=== PATIENT | male | born 1985 | race Two or more races ===

== ENCOUNTER 2021-07-02 14:26 | Emergency (ER) | payer MEDICAID, OTHER ==
[~2021-07-02] VITALS: Ht 175.3 cm; Wt 90.7 kg
[2021-07-02 21:00] VITALS: BP 144/97
[2021-07-02] MEDS ORDERED: ALPRAZolam 0.5 MG TAB PO ONE (21:00)
== END 2021-07-03 05:22 | disposition home or self-care (01) ==
LOC: EDBD 14:26 → ER 14:26
DX: F41.0 Panic disorder [episodic paroxysmal anxiety] (principal); F20.0 Paranoid schizophrenia; F43.0 Acute stress reaction; F17.210 Nicotine dependence, cigarettes, uncomplicated; F32.9 Major depressive disorder, single episode, unspecified; F12.10 Cannabis abuse, uncomplicated

== ENCOUNTER 2021-09-23 18:03 | Emergency (ER) | payer OTHER, MEDICAID ==
[~2021-09-23] VITALS: Ht 180.3 cm; Wt 81.6 kg
[2021-09-24 01:50] VITALS: BP 145/82
== END 2021-09-24 01:54 | disposition home or self-care (01) ==
LOC: ER 18:04
DX: F43.0 Acute stress reaction (principal); F17.210 Nicotine dependence, cigarettes, uncomplicated

== ENCOUNTER 2021-10-20 13:36 | Emergency (ER) | payer OTHER, MEDICAID ==
[~2021-10-20] VITALS: Ht 177.8 cm; Wt 90.7 kg
[2021-10-20] MEDS ORDERED: DOCUSATE SOD 100 MG CAP PO ONE (13:45)
[2021-10-20 15:45] VITALS: BP 122/71
== END 2021-10-20 15:48 | disposition home or self-care (01) ==
LOC: ER 13:36
DX: K59.00 Constipation, unspecified (principal); F41.9 Anxiety disorder, unspecified; F17.210 Nicotine dependence, cigarettes, uncomplicated; F12.10 Cannabis abuse, uncomplicated; Z91.041 Radiographic dye allergy status
CPT/HCPCS: 74018

== ENCOUNTER 2021-11-22 17:42 | Emergency (ER) | payer OTHER, MEDICAID ==
[~2021-11-22] VITALS: Ht 175.3 cm; Wt 77.1 kg
[2021-11-22 22:46] LABS: Albumin 3.8 g/dL (3.4-5.0); Calcium 9.1 mg/dL (8.5-10.1); Potassium 3.7 mmol/L (3.5-5.1)
[2021-11-22 22:49] LABS: BUN/Creatinine Ratio 11.5; Bilirubin, Total 0.4 mg/dL (0.2-1.0); Total Protein 6.5 g/dL (6.4-8.2)
[2021-11-22 23:03] VITALS: BP 111/62
[2021-11-22 23:06] LABS: Basophils # (auto) 0.1 10 ^3/uL (0-0.2); Basophils % (auto) 1.2 % (0.0-2.0); Eosinophils # (auto) 0.1 10 ^3/uL (0-0.8); Eosinophils % (auto) 1.9 % (0.0-7.0); Hematocrit 38.5 % (41.0-53.0); Lymphocytes # (auto) 2.5 10 ^3/uL (0.4-5.4); Lymphocytes % (auto) 39.6 % (10.0-50.0); Mean Corpuscular Hemoglobin 31.8 pg (28.0-32.0); Mean Corpuscular Hgb Conc. 36.3 g/dL (32.0-36.0); Mean Corpuscular Volume 87.7 fL (80.0-100.0); Monocytes # (auto) 0.4 10 ^3/uL (0-1.3); Neutrophils # (auto) 3.3 10 ^3/uL (1.6-8.6); Neutrophils % (auto) 51.3 % (37.0-80.0); Nucleated Red Blood Cells % 0.1 %; Red Blood Cells 4.39 10^6/uL (4.5-5.90); Red Cell Distribution Width 12.9 % (11.8-14.3); White Blood Cell 6.4 10^3/uL (4.4-10.8)
[2021-11-22 23:28] LABS: Urine WBC None Seen /hpf (0 - 3)
[2021-11-22 23:39] LABS: Urine Bacteria NONE SEEN /hpf (None Seen); Urine Blood Negative /uL (Negative); Urine Specific Gravity 1.005 (1.001-1.035)
[2021-11-23] MEDS ORDERED: CIPROFLOXACIN HCL 500 MG TAB PO ONE (00:45)
[2021-11-23] MEDS ORDERED: metroNIDAZOLE 500 MG TAB PO ONE (00:45)
[2021-11-23] MEDS ORDERED: CIPR-173 PO (00:47)
[2021-11-23] MEDS ORDERED: METR500T PO (00:47)
== END 2021-11-23 01:05 | disposition home or self-care (01) ==
LOC: ER 17:42
DX: K52.9 Noninfective gastroenteritis and colitis, unspecified (principal); F41.9 Anxiety disorder, unspecified; F32.9 Major depressive disorder, single episode, unspecified; F17.210 Nicotine dependence, cigarettes, uncomplicated; F12.10 Cannabis abuse, uncomplicated
CPT/HCPCS: 36415; 71045; 74176; 80053; 81001; 83690; 85025

== ENCOUNTER 2022-02-25 16:13 | Emergency (ER) | payer OTHER, MEDICAID ==
[~2022-02-25] VITALS: Ht 182.9 cm; Wt 90.7 kg
[~2022-02-25 16:13] MED LIST: CIPR-173 PO; METR500T PO
[2022-02-25] MEDS ORDERED: MECLIZINE HCL 25 MG TAB PO ONE (17:00)
[2022-02-25 18:03] VITALS: BP 134/74
== END 2022-02-25 18:05 | disposition home or self-care (01) ==
LOC: EDSEX 16:13 → EDBD 16:13 → ER 16:13
DX: R42 Dizziness and giddiness (principal); F20.9 Schizophrenia, unspecified; F17.210 Nicotine dependence, cigarettes, uncomplicated; Z79.2 Long term (current) use of antibiotics; Z79.899 Other long term (current) drug therapy; Z88.8 Allergy status to other drugs, medicaments and biological substances
CPT/HCPCS: 93005; 99283; J8597

== ENCOUNTER 2022-09-10 12:31 | Emergency (ER) | payer OTHER, MEDICAID ==
[~2022-09-10] VITALS: Ht 175.3 cm; Wt 89.1 kg
[2022-09-10 14:31] VITALS: BP 133/67
[2022-09-10] MEDS ORDERED: IBUPROFEN 600 MG TAB PO ONE (15:00)
[2022-09-10] MEDS ORDERED: IBUP600T28 PO (15:02)
== END 2022-09-10 15:14 | disposition home or self-care (01) ==
LOC: ER 12:31
DX: S20.211A Contusion of right front wall of thorax, initial encounter (principal); F41.9 Anxiety disorder, unspecified; F32.9 Major depressive disorder, single episode, unspecified; F20.9 Schizophrenia, unspecified; F17.210 Nicotine dependence, cigarettes, uncomplicated; F12.90 Cannabis use, unspecified, uncomplicated; F15.90 Other stimulant use, unspecified, uncomplicated; Z91.040 Latex allergy status; X58.XXXA Exposure to other specified factors, initial encounter; Y93.72 Activity, wrestling; Y92.098 Other place in other non-institutional residence as the place of occurrence of the external cause; Y99.8 Other external cause status
CPT/HCPCS: 71101

== ENCOUNTER 2023-01-12 18:23 | Emergency (ER) | payer OTHER, MEDICAID ==
[~2023-01-12] VITALS: Ht 175.3 cm; Wt 93.2 kg
[~2023-01-12 18:23] MED LIST changes: +IBUP1TAB5 PO
[2023-01-12 19:22] LABS: Basophils # (auto) 0.1 10 ^3/uL (0-0.2); Eosinophils # (auto) 0.1 10 ^3/uL (0-0.8); Eosinophils % (auto) 0.9 % (0.0-7.0); Hematocrit 41.8 % (41.0-53.0); Hemoglobin 15.2 g/dL (13.5-17.5); Lymphocytes # (auto) 2.3 10 ^3/uL (0.4-5.4); Lymphocytes % (auto) 31.8 % (10.0-50.0); Mean Corpuscular Hemoglobin 31.9 pg (28.0-32.0); Mean Corpuscular Hgb Conc. 36.3 g/dL (32.0-36.0); Mean Corpuscular Volume 87.7 fL (80.0-100.0); Monocytes # (auto) 0.5 10 ^3/uL (0-1.3); Monocytes % (auto) 7.1 % (0.0-12.0); Neutrophils # (auto) 4.3 10 ^3/uL (1.6-8.6); Neutrophils % (auto) 59.2 % (37.0-80.0); Nucleated Red Blood Cells % 0.1 %; Red Blood Cells 4.77 10^6/uL (4.5-5.90); Red Cell Distribution Width 12.4 % (11.8-14.3); White Blood Cell 7.2 10^3/uL (4.4-10.8)
[2023-01-12 19:23] LABS: Urine Bacteria NONE SEEN /hpf (None Seen); Urine Blood Negative /uL (Negative); Urine Specific Gravity 1.001 (1.001-1.035); Urine WBC <1 /hpf (0 - 3)
[2023-01-12 19:33] LABS: Albumin 4.2 g/dL (3.4-5.0); Calcium 9.1 mg/dL (8.5-10.1); Potassium 3.9 mmol/L (3.5-5.1)
[2023-01-12 19:37] LABS: BUN/Creatinine Ratio 17.7 (10.0-20.0); Bilirubin, Total 0.6 mg/dL (0.2-1.0); Total Protein 6.6 g/dL (6.4-8.2)
[2023-01-12 21:14] VITALS: BP 118/87
== END 2023-01-13 00:49 | disposition left against medical advice (07) ==
LOC: ER 18:23
DX: R11.0 Nausea (principal); R53.83 Other fatigue; R10.9 Unspecified abdominal pain; Z53.21 Procedure and treatment not carried out due to patient leaving prior to being seen by health care provider
CPT/HCPCS: 36415; 80053; 81001; 85025

== ENCOUNTER 2023-02-27 09:57 | Emergency (ER) | payer OTHER, MEDICAID ==
[~2023-02-27] VITALS: Ht 175.3 cm; Wt 94.2 kg
[2023-02-27 10:43] VITALS: BP 144/66
[2023-02-27] MEDS ORDERED: CETI5TAB6 PO (11:51)
== END 2023-02-27 11:57 | disposition home or self-care (01) ==
LOC: ER 09:57
DX: R09.81 Nasal congestion (principal); F17.210 Nicotine dependence, cigarettes, uncomplicated; F12.10 Cannabis abuse, uncomplicated; F14.10 Cocaine abuse, uncomplicated; F11.10 Opioid abuse, uncomplicated; Z91.041 Radiographic dye allergy status

== ENCOUNTER 2023-04-28 17:43 | Emergency (ER) | payer OTHER, MEDICAID ==
[~2023-04-28] VITALS: Ht 175.3 cm; Wt 93.5 kg
[~2023-04-28 17:43] MED LIST changes: +CETI5TAB6 PO
[2023-04-28 19:15] VITALS: BP 114/89; PULSE 92; RESP 19; TEMP 98.6; O2SAT 95
== END 2023-04-28 19:17 | disposition home or self-care (01) ==
LOC: ER 17:43
DX: F43.9 Reaction to severe stress, unspecified (principal); F17.210 Nicotine dependence, cigarettes, uncomplicated; Z79.1 Long term (current) use of non-steroidal anti-inflammatories (NSAID); Z79.2 Long term (current) use of antibiotics; Z79.899 Other long term (current) drug therapy; Z88.8 Allergy status to other drugs, medicaments and biological substances

== ENCOUNTER 2023-05-08 10:11 | Emergency (ER) | payer OTHER, MEDICAID ==
[~2023-05-08] VITALS: Ht 175.3 cm; Wt 95.1 kg
[2023-05-08] MEDS ORDERED: MUPI2OIN2 EX (13:58)
[2023-05-08] MEDS ORDERED: CEPH500C PO (13:58)
[2023-05-08 14:11] VITALS: BP 109/78; PULSE 86; RESP 18; TEMP 98.6; O2SAT 96
== END 2023-05-08 14:15 | disposition home or self-care (01) ==
LOC: ER 10:11
DX: L02.414 Cutaneous abscess of left upper limb (principal); F17.210 Nicotine dependence, cigarettes, uncomplicated; Z79.1 Long term (current) use of non-steroidal anti-inflammatories (NSAID); Z79.2 Long term (current) use of antibiotics; Z79.899 Other long term (current) drug therapy; Z88.8 Allergy status to other drugs, medicaments and biological substances

== ENCOUNTER 2023-05-18 13:21 | Emergency (ER) | payer OTHER, MEDICAID ==
[~2023-05-18] VITALS: Ht 175.3 cm; Wt 93.6 kg
[~2023-05-18 13:21] MED LIST changes: +CEPH500C PO; +MUPI2OIN2 EX
[2023-05-18] MEDS ORDERED: OXYMETAZOLINE HCL 0.05 % NASAL SPRAY 15ML EACHNOSTRI ONE (14:30)
[2023-05-18] MEDS ORDERED: DexAMETHasone SOD PHOS 10MG/1ML VIAL INJ IM ONE (14:30)
[2023-05-18] MEDS ORDERED: LORATADINE 10 MG TAB PO ONE (14:30)
[2023-05-18 15:59] LABS: COVID19 ANTIGEN SOFIA FIA NEGATIVE (NEGATIVE)
[2023-05-18 16:48] LABS: Rapid Influenza A Negative (Negative); Rapid Influenza B Negative (Negative)
[2023-05-18] MEDS ORDERED: IBUP-1455 PO (17:05)
[2023-05-18] MEDS ORDERED: LORA10CA PO (17:05)
[2023-05-18] MEDS ORDERED: AUG875T PO (17:05)
[2023-05-18 17:38] VITALS: BP 117/87; PULSE 71; RESP 18; TEMP 98; O2SAT 95
== END 2023-05-18 17:40 | disposition home or self-care (01) ==
LOC: ER 13:21
DX: J32.9 Chronic sinusitis, unspecified (principal); F17.210 Nicotine dependence, cigarettes, uncomplicated; Z79.1 Long term (current) use of non-steroidal anti-inflammatories (NSAID); Z79.2 Long term (current) use of antibiotics; Z79.899 Other long term (current) drug therapy; Z88.8 Allergy status to other drugs, medicaments and biological substances; Z20.822 Contact with and (suspected) exposure to COVID-19
CPT/HCPCS: 36415; 87426; 87804; 96372; 99283; J1100

== ENCOUNTER 2023-06-08 14:20 | Emergency (ER) | payer OTHER, MEDICAID ==
[~2023-06-08] VITALS: Ht 175.3 cm; Wt 92.8 kg
[~2023-06-08 14:20] MED LIST changes: +AUG875T PO; +IBUP-1455 PO; +LORA10CA PO
[2023-06-08 15:03] LABS: Basophils # (auto) 0.1 10 ^3/uL (0-0.2); Basophils % (auto) 0.8 % (0.0-2.0); Eosinophils # (auto) 0.2 10 ^3/uL (0-0.8); Eosinophils % (auto) 2.4 % (0.0-7.0); Hematocrit 45.2 % (41.0-53.0); Hemoglobin 15.9 g/dL (13.5-17.5); Lymphocytes % (auto) 23.2 % (10.0-50.0); Mean Corpuscular Hemoglobin 31.7 pg (28.0-32.0); Mean Corpuscular Hgb Conc. 35.1 g/dL (32.0-36.0); Mean Corpuscular Volume 90.3 fL (80.0-100.0); Monocytes # (auto) 0.5 10 ^3/uL (0-1.3); Monocytes % (auto) 5.9 % (0.0-12.0); Neutrophils # (auto) 5.7 10 ^3/uL (1.6-8.6); Neutrophils % (auto) 67.7 % (37.0-80.0); Red Cell Distribution Width 13.3 % (11.8-14.3); White Blood Cell 8.4 10^3/uL (4.4-10.8)
[2023-06-08] MEDS ORDERED: ZOFR4T PO (15:29)
[2023-06-08] MEDS ORDERED: MECL1TAB42 PO (15:29)
[2023-06-08 15:31] LABS: Alanine Aminotransferase 35 U/L (7-40); Alkaline Phosphatase 83 U/L (46-116); Anion Gap 9 (5-15); Aspartate Aminotransferase 18 U/L (13-40); BUN/Creatinine Ratio 5.5 (10.0-20.0); Bilirubin, Total 0.8 mg/dL (0.2-1.0); Blood Urea Nitrogen 6 mg/dL (9-23); Calcium 9.9 mg/dL (8.5-10.1); Carbon Dioxide 25 mmol/L (20-30); Chloride 103 mmol/L (98-107); Glucose 99 mg/dL (74-106); Potassium 4.2 mmol/L (3.5-5.1); Sodium 137 mmol/L (136-145)
[2023-06-08 15:32] LABS: Total Protein 7.3 g/dL (5.7-8.2)
[2023-06-08 15:48] LABS: Urine Bacteria FEW /hpf (None Seen); Urine Blood Negative /uL (Negative); Urine Clarity Clear (Clear); Urine Color Colorless (Yellow); Urine Protein, UAD Negative (Negative); Urine Specific Gravity 1.005 (1.001-1.035); Urine Urobilinogen Normal (Negative); Urine WBC <1 /hpf (0 - 3)
[2023-06-08 16:29] VITALS: BP 109/81; PULSE 71; RESP 16; TEMP 98; O2SAT 99
== END 2023-06-08 16:31 | disposition home or self-care (01) ==
LOC: ER 14:20
DX: R42 Dizziness and giddiness (principal); F17.210 Nicotine dependence, cigarettes, uncomplicated; F12.10 Cannabis abuse, uncomplicated; F14.10 Cocaine abuse, uncomplicated; Z79.899 Other long term (current) drug therapy; Z91.041 Radiographic dye allergy status
CPT/HCPCS: 36415; 80053; 81001; 83735; 85025

== ENCOUNTER 2023-12-14 14:48 | Emergency (ER) | payer OTHER, MEDICAID ==
[~2023-12-14] VITALS: Ht 175.3 cm; Wt 93.8 kg
[~2023-12-14 14:48] MED LIST changes: +AMOX500T86 PO; +MECL1TAB42 PO; +ZOFR4T PO
[2023-12-14] MEDS: LORazepam 0.5 MG TAB PO ONE (16:11)
[2023-12-14 16:23] LABS: Basophils # (auto) 0.1 10 ^3/uL (0-0.2); Basophils % (auto) 0.9 % (0.0-2.0); Eosinophils # (auto) 0.2 10 ^3/uL (0-0.8); Eosinophils % (auto) 2.2 % (0.0-7.0); Hematocrit 43.3 % (41.0-53.0); Lymphocytes # (auto) 2.6 10 ^3/uL (0.4-5.4); Lymphocytes % (auto) 33.1 % (10.0-50.0); Mean Corpuscular Hemoglobin 30.9 pg (28.0-32.0); Mean Corpuscular Hgb Conc. 34.7 g/dL (32.0-36.0); Mean Corpuscular Volume 89.1 fL (80.0-100.0); Monocytes # (auto) 0.5 10 ^3/uL (0-1.3); Monocytes % (auto) 5.7 % (0.0-12.0); Neutrophils # (auto) 4.6 10 ^3/uL (1.6-8.6); Neutrophils % (auto) 58.1 % (37.0-80.0); Nucleated Red Blood Cells % 0.2 %; Red Blood Cells 4.86 10^6/uL (4.5-5.90); Red Cell Distribution Width 13.3 % (11.8-14.3)
[2023-12-14 16:27] LABS: Anion Gap 6 (5-15); Carbon Dioxide 27 mmol/L (20-30); Chloride 104 mmol/L (98-107); Sodium 137 mmol/L (136-145)
[2023-12-14 16:28] LABS: Calcium 9.9 mg/dL (8.5-10.1)
[2023-12-14 16:33] LABS: Glucose 100 mg/dL (74-106)
[2023-12-14 16:36] LABS: BUN/Creatinine Ratio 5.1 (10.0-20.0); Blood Urea Nitrogen < 5 mg/dL (9-23)
[2023-12-14 17:00] VITALS: BP 130/76; PULSE 78; RESP 21; TEMP 98; O2SAT 99
== END 2023-12-14 17:06 | disposition home or self-care (01) ==
LOC: ER 14:48
DX: F41.9 Anxiety disorder, unspecified (principal); F32.9 Major depressive disorder, single episode, unspecified; F20.9 Schizophrenia, unspecified; F17.210 Nicotine dependence, cigarettes, uncomplicated; F12.10 Cannabis abuse, uncomplicated; F11.10 Opioid abuse, uncomplicated; Z91.041 Radiographic dye allergy status
CPT/HCPCS: 36415; 80048; 85025